=== PATIENT | female | born 1950 | race Hispanic/Latino ===

== ENCOUNTER 2017-04-23 09:50 | Day surgery (SDC) | payer MEDICARE, OTHER ==
[2017-04-23] MEDS ORDERED: Lactated Ringer's 1,000 ML IV ONE (09:56)
[2017-04-23 10:01] VITALS: BMI 28.8
[2017-04-23] MEDS ORDERED: Lidocaine 2% MPF (5 ml) Inj ONE (11:23)
[2017-04-23] MEDS ORDERED: Propofol 10 mg/ml Inj (20 ML) ONE (11:23)
[2017-04-23] MEDS ORDERED: Midazolam 2 MG/2 ML VIAL ONE (11:23)
[2017-04-23 11:57] VITALS: RESP 15
[2017-04-23 12:04] VITALS: BP 117/73; PULSE 67; TEMP 96.9; O2SAT 98
== END 2017-04-23 12:28 | disposition home or self-care (01) ==
LOC: H.ENDO 09:50
PROVIDERS: ATTEND Internal Medicine Gastroenterology
DX: R13.10 Dysphagia, unspecified (principal); E03.9 Hypothyroidism, unspecified; E78.5 Hyperlipidemia, unspecified; I10 Essential (primary) hypertension; K29.70 Gastritis, unspecified, without bleeding; K44.9 Diaphragmatic hernia without obstruction or gangrene
CPT/HCPCS: 43239; 88305; 88342; J2250; J2704; J7120